=== PATIENT | female | born 1985 | race Caucasian/White ===

== ENCOUNTER → 2021-07-23 | Outpatient (CLI) | payer BC ==
[2021-07-26 01:08] LABS: CHLAMYDIA TRACHOMATIS, NAA Negative (Negative)
== END | disposition home or self-care (01) ==
LOC: LAB 18:10 → LAB SHORT 18:10
PROVIDERS: Family Medicine
DX: Z34.81 Encounter for supervision of other normal pregnancy, first trimester (principal)
CPT/HCPCS: 87491; 87591

== ENCOUNTER → 2022-01-18 | Outpatient (CLI) | payer OTHER | LOC: LAB SHORT 12:35 | DX: Z34.03 Encounter for supervision of normal first pregnancy, third trimester (principal); Z3A.36 36 weeks gestation of pregnancy | CPT/HCPCS: 87081; 87150 ==

== ENCOUNTER 2022-02-17 17:20 | Inpatient (IN) | payer OTHER ==
[~2022-02-17] VITALS: Ht 162.6 cm; Wt 63.6 kg
[2022-02-17] MEDS ORDERED: PRENATAL TABLE1 EAC2 PO (19:18)
[2022-02-17] MEDS ORDERED: ACYC400 PO (19:18)
[2022-02-17 19:35] LABS: BASOPHILS ABSOLUTE AUTO 0.07 K/mm3 (0.00-0.23); BASOPHILS PERCENT AUTO 1 % (0-2); EOSINOPHILS ABSOLUTE AUTO 0.08 K/mm3 (0.00-0.68); EOSINOPHILS PERCENT AUTO 1 % (0-6); Hemoglobin 14.3 g/dL (11.5-16.0); IMMATURE GRAN ABSOLUTE AUTO 0.17 K/mm3 (0.00-0.10); IMMATURE GRAN PERCENT AUTO 1 % (0-1); LYMPHOCYTES ABSOLUTE AUTO 1.97 K/mm3 (0.84-5.20); LYMPHOCYTES PERCENT AUTO 14 % (21-46); MONOCYTES ABSOLUTE AUTO 0.97 K/mm3 (0.16-1.47); MONOCYTES PERCENT AUTO 7 % (4-13); Mean Corpuscular HGB 32.1 pg (26.0-34.0); Mean Corpuscular Volume 94 fL (80-100); Mean Platelet Volume 9.2 fL (9.1-12.4); NEUTROPHILS ABSOLUTE AUTO 10.78 K/mm3 (1.96-9.15); NEUTROPHILS PERCENT AUTO 77 % (41-73); Platelet Count 254 K/mm3 (150-400); RDW Coefficient Variation 13.2 % (11.7-14.2); RDW Standard Deviation 45.9 fL (35.1-46.3); Red Blood Cell Count 4.45 M/mm3 (3.80-5.20); White Blood Cell Count 14.04 K/mm3 (4.00-11.30)
[2022-02-17 20:12] LABS: Influenza A, PCR NEGATIVE (NEGATIVE); Influenza B, PCR NEGATIVE (NEGATIVE); Resp Syncytial Virus, PCR NEGATIVE (NEGATIVE); SARS-Cov-2 (COVID-19) PCR, MMC NEGATIVE (NEGATIVE)
--- NOTE | 2022-02-18 09:30 | NUR ---
ASSUMED CARE REPT FROM Dennis HANEY RN , PT RESTING IN BED WITH ICE PAD TO PERINIUM, STATES SHE NEED TO USE BATHROOM, PT ASSITED UP TO BATHROOM, VOIDED INSTRUCTION GIVEN ON TEMO BOTTLE, PT SHOWERED, ICE PAD APPLIED TO PERINIUM, PT TOLERATED WELL, BACK TO BED CALL LIGHT WITHIN REACH
--- NOTE | 2022-02-18 14:27 | NUR ---
rept to Justa Potter RN
--- NOTE | 2022-02-19 05:44 | NUR ---
BP 97/52 PT RESTING IN BED. PT DENIES ANY DIZZY OR LIGHTHEADEDNESS, LOCHIA WNL, FUNDUS FIRM.
--- NOTE | 2022-02-19 08:20 | NUR ---
DISCHARGE INSTRUCTIONS SIGNED. QUESTIONS ANSWERED. PT TO BE DISCHARGED HOME WITH INFANT.
== END 2022-02-19 08:25 | disposition home or self-care (01) | DRG 806 ==
LOC: BC 17:20 → OBS 17:20 → BC 19:22
PROVIDERS: ADMIT Family Medicine
PROC: 10E0XZZ Delivery of Products of Conception, External Approach (ICD-10-PCS; principal; 2022-02-18)
PROC: 0HQ9XZZ Repair Perineum Skin, External Approach (ICD-10-PCS; 2022-02-18)
PROC: 3E0R3BZ Introduction of Anesthetic Agent into Spinal Canal, Percutaneous Approach (ICD-10-PCS; 2022-02-18)
PROC: 3E0R33Z Introduction of Anti-inflammatory into Spinal Canal, Percutaneous Approach (ICD-10-PCS; 2022-02-18)
DX: O48.0 Post-term pregnancy (principal); O98.52 Other viral diseases complicating childbirth; Z37.0 Single live birth; Z20.822 Contact with and (suspected) exposure to COVID-19; O70.0 First degree perineal laceration during delivery; B00.9 Herpesviral infection, unspecified; Z3A.40 40 weeks gestation of pregnancy; Z98.890 Other specified postprocedural states; Z87.891 Personal history of nicotine dependence; Z91.018 Allergy to other foods; Z79.2 Long term (current) use of antibiotics; Z79.899 Other long term (current) drug therapy; Z67.40 Type O blood, Rh positive
CPT/HCPCS: 0241U; 36415; 51702; 59025; 85025; 86850; 86900; 86901; A9270; J2001; J2210; J2590; J3010; J7120